=== PATIENT | female | born 1995 | race African-American/Black ===

== ENCOUNTER 2018-12-04 09:28 | Emergency (ER) | payer SELFPAY ==
[2018-12-04 09:49] VITALS: BMI 26.3
[2018-12-04 11:58] LABS: BASO % 0.5 % (0-2.0); EOS % 0.2 % (0-4.5); HEMATOCRIT 30.5 % (32.4-45.2); HEMOGLOBIN 10.1 GM/dL (10.7-15.3); MCH 29.8 pg (25.7-33.7); MEAN CELL VOLUME 90.1 fl (80-96); MEAN PLT VOLUME 8.4 fl (7.5-11.1); MONO % 8.1 % (3.8-10.2); NEUT % 79.2 % (42.8-82.8); PLATELET COUNT 290 K/MM3 (134-434); RBC 3.39 M/mm3 (3.60-5.2); RDW 15.2 % (11.6-15.6)
[2018-12-04 12:18] LABS: ALBUMIN 3.3 g/dl (3.4-5.0); BILIRUBIN,TOTAL 0.3 mg/dL (0.2-1); BLOOD UREA NITROGEN 4.2 mg/dL (7-18); CALCIUM 9.1 mg/dL (8.5-10.1); CREATININE 0.5 mg/dL (0.55-1.3)
--- NOTE | 2018-12-04 13:28 | EKG ---
Test Reason : Blood Pressure : / mmHG Vent. Rate : 084 BPM Atrial Rate : 084 BPM P-R Int : 138 ms QRS Dur : 098 ms QT Int : 348 ms P-R-T Axes : 049 032 000 degrees QTc Int : 411 ms NORMAL SINUS RHYTHM INCOMPLETE RIGHT BUNDLE BRANCH BLOCK BORDERLINE ECG NO PREVIOUS ECGS AVAILABLE Confirmed by AMITA MENDOZA MD ([id number]) on 12/04/2018 1:28:28 PM Referred By: Confirmed By:AMITA MENDOZA MD
--- NOTE | 2018-12-04 14:12 | PDOC ---
Documentation entered by Negro Gonzalez SCRIBE, acting as scribe for Kirill Huddleston MD. Kirill Huddleston MD: This documentation has been prepared by the Lisa rivers Xhesika, SCRIBE, under my direction and personally reviewed by me in its entirety. I confirm that the documentation accurately reflects all work, treatment, procedures, and medical decision making performed by me. History of Present Illness - General Chief Complaint: Back Pain Stated Complaint: ABD PAIN,SOB,6MONTH Time Seen by Provider: 12/04/18 10:23 History Source: Patient Exam Limitations: No Limitations - History of Present Illness Initial Comments: 12/04/18 11:14 The patient is a 23 year old female, , currently 28 weeks , with no significant PMH of who presents to the emergency department with R ribcage pain since 8:30AM. The patient describes the pain as sharp, intermittent, associated with SOB and palpitations when sitting down. Patient notes she had a similar episode last while she was laying in bed. Patient denies any history of PE/ DVT. The patient denies chest pain, headache and dizziness. Denies fever, chills, cough, nausea, vomiting, diarrhea and constipation. Denies dysuria, frequency, urgency and hematuria. Allergies: NKDA PCP: Located in [place] OBGYN: located in [place] Past History - Past Medical History Allergies/Adverse Reactions: Allergies Allergy/AdvReac Type Severity Reaction Status Date / Time No Known Allergies Allergy Verified 12/04/18 09:36 COPD: No - Suicide/Smoking/Psychosocial Hx Smoking History: Never smoked Have you smoked in the past 12 months: No Review of Systems - Review of Systems Able to Perform ROS?: Yes Comments:: 12/04/18 11:14 CONSTITUTIONAL: No fever, no chills, no fatigue EYES: No visual changes ENT: No ear pain, no sore throat CARDIOVASCULAR: No chest pain. (+) palpitations RESPIRATORY: No cough. (+) SOB GI: No abdominal pain, no nausea, no vomiting, no constipation, no diarrhea GENITOURINARY: No dysuria, no frequency, no hematuria MUSKULOSKELETAL: (+) R ribcage pain. No backpain, no joint pain, no myalgias SKIN: No rash NEURO: No headache *Physical Exam - Vital Signs Last Vital Signs Temp Pulse Resp BP Pulse Ox 97.8 F 89 18 118/61 100 12/04/18 09:29 12/04/18 09:29 12/04/18 09:29 12/04/18 09:12/04/18 09:29 - Physical Exam Comments: 12/04/18 11:27 CONSTITUTIONAL: Well-appearing; well-nourished; in no apparent distress HEAD: Normocephalic; atraumatic EYES: PERRL; EOM intact ENMT: External appears normal; normal oropharynx NECK: Supple; non-tender; no cervical lymphadenopathy CARD: Normal S1, S2; no murmurs, rubs, or gallops RESP: Normal chest excursion with respiration; breath sounds clear and equal bilaterally; no wheezes, rhonchi, or rales ABD: Soft, non-distended; non-tender; no palpable organomegaly, no palpable hernias RIBCAGE: (+) reproducible R mid axillary line TTP at intercostal space 8-9 PELVIC: (+) gravid uterus 8cm above umbilicus. EXT: Normal ROM in all four extremities; non-tender to palpation; distal pulses intact SKIN: Warm, dry, no rash NEURO: No focal neurological deficiencies. Heart Score/ECG Review - ECG Intrepretation Rhythm: Regular Rhythm (normal sinus rhythm, incomplete rbbb.) ED Treatment Course - LABORATORY CBC & Chemistry Diagram: 12/04/18 11:36 12/04/18 11:36 - ADDITIONAL ORDERS Additional order review: Laboratory Results 12/04/18 12/04/18 11:36 11:36 D-Dimer 1320 H Sodium 139 Potassium 4.0 Chloride 106 Carbon Dioxide 24 Anion Gap 9 BUN 4.2 L Creatinine 0.5 L Est GFR (CKD-EPI)AfAm 158.11 Est GFR (CKD-EPI)NonAf 136.42 Random Glucose 76 Calcium 9.1 Total Bilirubin 0.3 AST 25 ALT 11 L Alkaline Phosphatase 58 Total Protein 7.0 Albumin 3.3 L 12/04/18 11:36 RBC 3.39 L MCV 90.1 MCHC 33.0 RDW 15.2 MPV 8.4 Neutrophils % 79.2 Lymphocytes % 12.0 Monocytes % 8.1 Eosinophils % 0.2 Basophils % 0.5 - RADIOLOGY Radiology Studies Ordered: Category Date Time Status CHEST CTA [CT] Stat CT Scan 12/04/18 14:02 Ordered DUPLEX VASCUL US-2LEGS [US] Stat Ultrasound 12/04/18 10:39 Completed LIMITED US [US] Stat Ultrasound 12/04/18 10:39 Completed Medical Decision Making - Medical Decision Making 12/04/18 14:10 Patient is a 23-year-old female, 2 para 1, at 28 weeks gestation by ultrasound who presents with atraumatic, sudden right sided rib cage pain associated with shortness of breath and palpitations prior to arrival. In the ER , patient is noted to be afebrile, with pleuritic right sided rib cage pain. EKG shows no evidence of acute ischemia, underlying RBBB is noted. According to the latest protocol, d-dimer was obtained and is elevated for the third trimester. Doppler ultrasound of the lower extremities revealed no evidence of DVT. At this time, patient will undergo a CTA of chest to rule out PE. I discussed the risk and benefits of the CAT scan with the patient and she is expressed understanding. Consent has been obtained. Will reassess after the CT. 12/04/18 15:43 cta of chest shows no evidence of pe. will d/c with web sizer f/u. *DC/Admit/Observation/Transfer Diagnosis at time of Disposition: Chest pain Qualifiers: Chest pain type: unspecified Qualified Code(s): R07.9 - Chest pain, unspecified Qualifiers: Weeks of gestation: 28 weeks Qualified Code(s): Z3A.28 - 28 weeks gestation of - Discharge Dispostion Disposition: HOME Condition at time of disposition: Stable Decision to Admit order: No - Referrals Referrals: Dian Shin MD [Staff Physician] - - Patient Instructions Printed Discharge Instructions: DI for Chest Pain Additional Instructions: your lower extremity US shows no evidence of deep venous thrombosis. your ct chest with iv contrast shows no evidence of pulmonary embolism. follow up with your web sizer. return for worsening pain. - Post Discharge Activity
[2018-12-04] MEDS ORDERED: SODIUM CHLORIDE 1,000 ML IV STA (14:52)
[2018-12-04 17:32] VITALS: BP 109/67; PULSE 79; TEMP 98.1
== END 2018-12-04 17:34 | disposition home or self-care (01) ==
LOC: JER 09:28
PROC: 3E0337Z Introduction of Electrolytic and Water Balance Substance into Peripheral Vein, Percutaneous Approach (ICD-10-PCS; principal; 2018-12-04)
DX: R00.2 Palpitations (principal); O26.892 Other specified pregnancy related conditions, second trimester; Z3A.28 28 weeks gestation of pregnancy; R07.9 Chest pain, unspecified
CPT/HCPCS: 36415; 71275-TC; 76815-TC; 80053; 85025; 85379; 93005; 93010; 93970-TC; 99283-25; J7030